=== PATIENT | male | born 1960 | race Caucasian/White ===

== ENCOUNTER 2016-11-04 16:34 | Outpatient (CLI) | payer OTHER ==
[2016-11-04 17:35] LABS: % BASOPHILS 0.7 % (0.0-2.0); % EOSINOPHILS 1.3 % (0.0-5.0); % LYMPHOCYTES 26.8 % (20.0-50.0); % MONOCYTES 9.8 % (2.0-10.0); % NEUTROPHILS 61.4 % (40.0-80.0); HEMATOCRIT 47.7 % (39.0-49.0); HEMOGLOBIN 16.3 gm/dL (13.2-17.3); MEAN CELL VOLUME 90.2 fl (80-99); MEAN CORPUSCULAR HEMOGLOBIN 30.8 pg (26.0-30.0); MEAN CORPUSCULAR HGB CONC 34.1 pg (28.0-36.0); MEAN PLATELET VOLUME 8.7 fl; NEUTROPHILE ABSOLUTE 4.1 Th/cmm (1.8-8.0); PLATELET COUNT 234 Th/cmm (150-400); RED BLOOD COUNT 5.28 Mil/cmm (4.30-5.70); RED CELL DISTRIBUTION WIDTH 12.1 % (11.5-20.0); WHITE BLOOD COUNT 6.6 Th/cmm (4.8-10.8)
[2016-11-04 17:46] LABS: URINE BILIRUBIN NEGATIVE (NEGATIVE); URINE BLOOD NEGATIVE (NEGATIVE); URINE COLOR YELLOW; URINE GLUCOSE (UA) NEGATIVE (NEGATIVE); URINE KETONE NEGATIVE (NEGATIVE); URINE PH 5.5; URINE PROTEIN NEGATIVE (NEGATIVE); URINE UROBILINOGEN 0.2 E.U./dL (0.2 - 1.0)
[2016-11-04 17:47] LABS: URINE BACTERIA NONE SEEN /hpf (NONE SEEN); URINE EPITHELIAL CELLS NONE SEEN /lpf (FEW); URINE RBC NONE SEEN /hpf (0-5); URINE WBC NONE SEEN /hpf (0-5)
[2016-11-04 18:04] LABS: ALB/GLOB RATIO 1.5 (1.0-1.8); ALKALINE PHOSPHATASE 75 U/L (34-104); ANION GAP 10.2 (7.0-16.0); BILIRUBIN,DIRECT 0.13 mg/dL (0.0-0.2); BUN - UREA NITROGEN 12 mg/dL (7-25); CALCIUM SERUM 9.4 mg/dL (8.6-10.3); CARBON DIOXIDE 25.9 mEq/L (21.0-31.0); CHLORIDE 104 mEq/L (98-107); CHOLESTEROL 215 mg/dL (<200); CREATININE - SERUM 1.2 mg/dL (0.7-1.3); GLUCOSE 96 mg/dL (70-105); POTASSIUM SERUM 4.1 mEq/L (3.5-5.1); SGOT 38 U/L (13-39); SGPT/ALT 42 U/L (7-52); SODIUM SERUM 136 mEq/L (136-145); TRIGLYCERIDES 621 mg/dL (<150)
== END 2016-11-04 17:00 | disposition home or self-care (01) ==
LOC: LAB 16:34 → EEVIPCON 16:34 → LAB 17:00
DX: I10 Essential (primary) hypertension (principal); E78.5 Hyperlipidemia, unspecified
CPT/HCPCS: 36415-UA; 80048-TC; 80061-TC; 80076-TC; 81001-TC; 84153-90; 85025-TC

== ENCOUNTER 2016-11-09 09:56 | Outpatient (CLI) | payer OTHER ==
[2016-11-12 04:12] LABS: HEP B CORE AB TOTAL Negative (Negative); HEP B SURFACE AB QL Reactive; HEP C ANTIBODY <0.1 s/co ratio (0.0-0.9)
== END 2016-11-09 11:00 | disposition home or self-care (01) ==
LOC: LAB 09:56
PROVIDERS: ATTEND Emergency Medicine
DX: Z77.21 Contact with and (suspected) exposure to potentially hazardous body fluids (principal)
CPT/HCPCS: 86704-90; 86706-90; 86803-90; 87340-90; 87389-90

== ENCOUNTER 2017-03-08 08:59 | Outpatient (CLI) | payer OTHER ==
[2017-03-08 09:40] LABS: CHOLESTEROL 198 mg/dL (<200); TRIGLYCERIDES 575 mg/dL (<150)
== END 2017-03-08 09:11 | disposition home or self-care (01) ==
LOC: LAB 08:59
DX: E78.5 Hyperlipidemia, unspecified (principal)
CPT/HCPCS: 36415-UA; 80061-TC; 84403-90

== ENCOUNTER 2017-09-08 15:02 | Outpatient (CLI) | payer OTHER ==
--- NOTE | 2017-09-09 08:10 | Diagnostic Imaging Report ---
CHEST X-RAY: 2 views INDICATION: Dyspnea COMPARISON: 09/25/2015 FINDINGS: No focal consolidation or effusions. The left costophrenic angle is incompletely visualized. Heart size is normal. Degenerative changes of the spine are noted. IMPRESSION: No focal airspace consolidation identified. .
== END 2017-09-08 16:00 | disposition home or self-care (01) ==
LOC: RAD 15:02
DX: R06.00 Dyspnea, unspecified (principal)
CPT/HCPCS: 71046-TC

== ENCOUNTER 2019-01-05 08:57 | Outpatient (CLI) | payer OTHER ==
[2019-01-05 09:56] LABS: BASOPHILE ABSOLUTE 0.1 Th/cumm (0-0.2); EOSINOPHILE ABSOLUTE 0.2 Th/cmm (0.1-0.4); LYMPHOCYTE ABSOLUTE 2.6 Th/cmm (1.5-3.0); MONOCYTE ABSOLUTE 0.6 Th/cmm (0.3-1.0)
[2019-01-05 09:59] LABS: % BASOPHILS 1.7 % (0.0-2.0); % EOSINOPHILS 3.1 % (0.0-5.0); % LYMPHOCYTES 39.3 % (20.0-50.0); % MONOCYTES 8.4 % (2.0-10.0); % NEUTROPHILS 47.5 % (40.0-80.0); HEMATOCRIT 44.5 % (41.0-60); MEAN CELL VOLUME 89.6 fl (80-99); MEAN CORPUSCULAR HEMOGLOBIN 34.3 pg (26.0-30.0); MEAN CORPUSCULAR HGB CONC 38.3 pg (28.0-36.0); MEAN PLATELET VOLUME 9.1 fl; NEUTROPHILE ABSOLUTE 3.1 Th/cmm (1.8-8.0); PLATELET COUNT 255 Th/cmm (150-400); RED BLOOD COUNT 4.96 Mil/cmm (4.30-5.70); RED CELL DISTRIBUTION WIDTH 12.5 % (11.5-20.0)
[2019-01-05 10:24] LABS: ALB/GLOB RATIO 1.7 (1.0-1.8); ALBUMIN 4.4 gm/dL (4.2-5.5); ALKALINE PHOSPHATASE 91 U/L (34-104); BILIRUBIN,TOTAL 0.8 mg/dL (0.3-1.0); CALCIUM SERUM 9.7 mg/dL (8.6-10.3); CARBON DIOXIDE 26.4 mEq/L (21.0-31.0); CHLORIDE 102 mEq/L (98-107); CREATININE - SERUM 1.4 mg/dL (0.7-1.3); GFR AFRICAN-AMERICAN > 60.0 ml/min (>90); GFR NON AFRICAN-AMERICAN 54.9 ml/min; GLUCOSE 115 mg/dL (70-105); POTASSIUM SERUM 4.4 mEq/L (3.5-5.1); SODIUM SERUM 135 mEq/L (136-145)
[2019-01-05 10:44] LABS: WHITE BLOOD COUNT 6.6 Th/cmm (4.8-10.8)
== END 2019-01-05 09:23 | disposition home or self-care (01) ==
LOC: EEVIPCON 08:57 → LAB 08:57
DX: G40.909 Epilepsy, unspecified, not intractable, without status epilepticus (principal); E78.5 Hyperlipidemia, unspecified; I10 Essential (primary) hypertension
CPT/HCPCS: 36415-UA; 80053-TC; 80299-90; 85007-TC; 85025-TC

== ENCOUNTER 2019-01-15 10:00 | Outpatient (CLI) | payer OTHER ==
--- NOTE | 2019-01-15 11:14 | Diagnostic Imaging Report ---
Right shoulder (3 views) HISTORY: Pain Narrowing and hypertrophic bone formation noted about the acromioclavicular joint. There is a small calcific density within the soft tissues adjacent to the superior margin of the acromioclavicular joint. This may be on a dystrophic basis. Small subcortical cystic change noted in the lateral aspect of the humeral head consistent with a degenerative etiology. No acute abnormalities. No fractures. No dislocation. IMPRESSION: 1. No acute abnormalities 2. Chronic/degenerative changes as noted above
--- NOTE | 2019-01-15 11:15 | Diagnostic Imaging Report ---
Left shoulder (3 views) HISTORY: Pain Narrowing and hypertrophic bone formation noted about the acromioclavicular joint. No definite acute abnormalities. No fractures. No dislocation. IMPRESSION: 1. Degenerative changes about the acromioclavicular joint 2. No acute abnormalities
== END 2019-01-15 10:48 | disposition home or self-care (01) ==
LOC: RAD 10:00 → LAB 10:00
PROVIDERS: ATTEND Family Medicine
DX: M19.012 Primary osteoarthritis, left shoulder (principal); M19.011 Primary osteoarthritis, right shoulder; E78.5 Hyperlipidemia, unspecified; I10 Essential (primary) hypertension
CPT/HCPCS: 73030-TC-LT; 73030-TC-RT

== ENCOUNTER 2019-02-18 14:21 | Outpatient (CLI) | payer OTHER ==
[2019-02-18 15:34] LABS: CREATININE - SERUM 1.1 mg/dL (0.7-1.3)
== END 2019-02-18 14:44 | disposition home or self-care (01) ==
LOC: LAB 14:21
PROVIDERS: ATTEND Emergency Medicine
DX: G40.909 Epilepsy, unspecified, not intractable, without status epilepticus (principal); E78.5 Hyperlipidemia, unspecified; I10 Essential (primary) hypertension
CPT/HCPCS: 36415-UA; 82565-TC; 84520-TC

== ENCOUNTER 2019-03-19 07:38 | Outpatient (CLI) | payer OTHER | END 2019-03-19 08:10 | disposition home or self-care (01) | LOC: LAB 07:38 | DX: G43.709 Chronic migraine without aura, not intractable, without status migrainosus (principal); E78.5 Hyperlipidemia, unspecified; I10 Essential (primary) hypertension | CPT/HCPCS: 80299-90 ==